=== PATIENT | male | born 1935 | race Caucasian/White ===

== ENCOUNTER → 2016-10-22 | Outpatient (CLI) | payer MEDICARE ==
[~2016-10-22] MED LIST: ASPI-860 PO; ASPI325T4 PO; CA C1TAB79 PO; CALC500T55 PO; CHOL10002 PO; CYAN1TAB7 SL; DOCU-243 PO; LVT.05T PO; MEMA5TAB2 PO; MULT1CAP21 PO; OMEG1CAP14 PO; PYRI100T4 PO; UBID1CAP51 PO; VITA400C58 PO
== END ==
LOC: EMS 15:44
DX: Z53.20 Procedure and treatment not carried out because of patient's decision for unspecified reasons (principal)